=== PATIENT | female | born 1985 | race Caucasian/White ===

== ENCOUNTER 2016-08-17 12:44 | Emergency (ER) | payer SELFPAY ==
[~2016-08-17] VITALS: Ht 147.3 cm; Wt 65.5 kg
[2016-08-17 13:11] VITALS: Ht 147.3 cm; Wt 65.5 kg
[2016-08-17] MEDS ORDERED: HYDROCODONE/APAP (5/325) TAB PO STA (15:56)
[2016-08-17 16:29] LABS: ADD SCAN DIFF NO
[2016-08-17 16:33] LABS: BASOPHILS % 0.3 % (0.0-2.0); EOSINOPHILS # 0.1 10^3/ul (0.0-0.5); EOSINOPHILS % 0.7 % (0.0-7.0); HEMOGLOBIN 13.4 g/dl (12.0-16.0); LYMPHOCYTES # 3.2 10^3/ul (0.8-2.9); LYMPHOCYTES % 35.2 % (15.0-51.0); MEAN CORPUSCULAR HEMOGLOBIN 28.6 pg (29.0-33.0); MEAN CORPUSCULAR HGB CONC 33.5 g/dl (32.0-37.0); MEAN CORPUSCULAR VOLUME 85.5 fl (82.0-101.0); MEAN PLATELET VOLUME 12.5 fl (7.4-10.4); MONOCYTE # 0.4 10^3/ul (0.3-0.9); MONOCYTES % 4.6 % (0.0-11.0); NEUTROPHIL # 5.4 10^3/ul (1.6-7.5); NEUTROPHILS % 58.8 % (39.0-77.0); PLATELET COUNT 180 10^3/UL (140-415); RED BLOOD COUNT 4.68 10^6/ul (4.20-5.40); RED CELL DISTRIBUTION WIDTH 11.9 % (11.5-14.5); WHITE BLOOD COUNT 9.2 10^3/ul (4.8-10.8)
[2016-08-17 16:47] LABS: ALBUMIN 4.6 g/dl (3.3-4.9); POTASSIUM 3.7 mmol/L (3.5-5.1)
[2016-08-17 16:50] LABS: ALBUMIN/GLOBULIN RATIO 1.53; BILIRUBIN,INDIRECT 0.2 mg/dl (0-1.1); BILIRUBIN,TOTAL 0.2 mg/dl (0.2-1.3); CREATININE 0.63 mg/dl (0.44-1.00); TOTAL PROTEIN 7.6 g/dl (6.1-8.1)
[2016-08-17 16:51] LABS: CALCIUM 9.5 mg/dl (8.4-10.2)
--- NOTE | 2016-08-17 16:58 | RADRPT ---
PROCEDURE: Pelvic ultrasound. CLINICAL INDICATION: Pelvic pain TECHNIQUE: Carvajal scale, color doppler, spectral doppler ultrasound of the pelvis was performed with transabdominal and transvaginal transducers. COMPARISON: No prior studies are available for comparison. FINDINGS: Uterus: Position: Anteverted. Normal myometrial echogenicity. Normal appearance of the endometrium. Proliferative phase. Ovaries: Right ovary not identified by the casting machine service operator. A few sub centimeter follicles are noted within the left ovary. Free fluid: None. Measurements: Endometrium: 0.61 cm Uterus: 7.3 x 3.3 x 3.9 cm Left ovary: 3.4 x 2.1 x 2.8 cm IMPRESSION: Normal appearance of the uterus and left ovary. Right ovary not identified by the casting machine service operator. RPTAT: AADD .Jim Carbajal MD, Date Time Electronically viewed and signed by .Jim Carbajal MD, on 08/17/2016 16:58 .B/
--- NOTE | 2016-08-17 17:17 | ERD ---
ER Documentation Chief Complaint Date/Time DATE: 08/17/16 TIME: 17:10 Chief Complaint Pt with pelvic pain X 2 years, nausea and dizziness x 1 week, HPI This is a 30-year-old female who presents emergency for evaluation of multiple complaints. Patient states she has intermittent pelvic pain for the last 2 years. Patient also reports frequency and urgency with urination for the past week. Patient has some nausea and dizziness. Denies dysuria or hematuria. No foul smelling odor or discharge. No abnormal vaginal discharge. No fevers or chills. Patient has never had a Pap smear. Patient is currently menstruating. Has normal menstrual periods and reports a decreased level of bleeding during this period. No large clots passed. No chance of . Patient has history of ovarian cysts. No ruptured cysts. Patient reports intermittent blurriness of her vision. Has never had an eye exam. No foreign body sensation. No redness to eyes. No loss of vision. No eye or head iinjury. Patient lives in [facility] and is here for the next 3 weeks. ROS All systems reviewed and are negative except as per history of present illness. Medications Home Meds Active Scripts Ibuprofen* (Motrin*) 400 Mg Tab, 400 MG PO Q6, #15 TAB Prov:NORA VEGA NP 08/17/16 Hydrocodone/Acetaminophen (Broadview 5-325 Tablet) 1 Each Tablet, 1 TAB PO Q6H Y for PAIN, #7 TAB Prov:NORA VEGA NP 08/17/16 PMhx/Soc ovarian cyst Medical and Surgical Hx: pt denies Medical Hx, pt denies Surgical Hx Hx Alcohol Use: No Hx Substance Use: No Hx Tobacco Use: No Smoking Status: Never smoker Physical Exam Vitals Vital Signs Date Time Temp Pulse Resp B/P Pulse Ox O2 Delivery O2 Flow Rate FiO2 08/17/16 13:11 98.5 85 20 119/80 100 Physical Exam Const: [] Head: Atraumatic Eyes: Normal Conjunctiva ENT: Normal External Ears, Nose and Mouth. Neck: Full range of motion..~ No meningismus. Resp: Clear to auscultation bilaterally Cardio: Regular rate and rhythm, no murmurs Abd: Soft, non tender, non distended. Normal bowel sounds Skin: No petechiae or rashes Back: No midline or flank tenderness Ext: No cyanosis, or edema Neur: Awake and alert Psych: Normal Mood and Affect Result Diagram: 08/17/16 1628 08/17/16 1628 Results 24 hrs Laboratory Tests Test 08/17/16 16:28 08/17/16 17:29 Alanine Aminotransferase (ALT/SGPT) 21IU/L Albumin 4.6g/dl Albumin/Globulin Ratio 1.53 Alkaline Phosphatase 55IU/L Anion Gap 16 Aspartate Amino Transf (AST/SGOT) 20IU/L Basophils # 0.010^3/ul Basophils % 0.3% Blood Urea Nitrogen 11mg/dl Calcium Level 9.5mg/dl Carbon Dioxide Level 29mmol/L Chloride Level 103mmol/L Creatinine 0.63mg/dl Direct Bilirubin 0.00mg/dl Eosinophils # 0.110^3/ul Eosinophils % 0.7% Globulin 3.00g/dl Glucose Level 132mg/dl Hematocrit 40.0% Hemoglobin 13.4g/dl Indirect Bilirubin 0.2mg/dl Lymphocytes # 3.210^3/ul Lymphocytes % 35.2% Mean Corpuscular Hemoglobin 28.6pg Mean Corpuscular Hemoglobin Concent 33.5g/dl Mean Corpuscular Volume 85.5fl Mean Platelet Volume 12.5fl Monocytes # 0.410^3/ul Monocytes % 4.6% Neutrophils # 5.410^3/ul Neutrophils % 58.8% Nucleated Red Blood Cells # 0.010^3/ul Nucleated Red Blood Cells % 0.0/100WBC Platelet Count 41628^3/UL Potassium Level 3.7mmol/L Red Blood Count 4.6810^6/ul Red Cell Distribution Width 11.9% Sodium Level 144mmol/L Total Bilirubin 0.2mg/dl Total Protein 7.6g/dl White Blood Count 9.210^3/ul Bedside Urine Blood 3+ Bedside Urine Glucose (UA) Negative Bedside Urine Ketones (LAB) Negative Bedside Urine Leukocyte Esterase (L Negative Bedside Urine Nitrite (LAB) Negative Bedside Urine Protein (LAB) Negative Bedside Urine pH (LAB) 5.0 Current Medications Medications (Trade) Dose Ordered Sig/Shahid Route PRN Reason Start Time Stop Time Status Last Admin Dose Admin Acetaminophen/ Hydrocodone Bitart (Broadview (5/325)) 1 tab ONCE STAT PO 08/17/16 15:56 08/17/16 15:58 DC 08/17/16 16:14 Procedures/MDM ED COURSE: The patient was stable throughout ED course. I kept the patient and/or family informed of laboratory and diagnostic imaging results throughout the ED course. Laboratory CBC no significant anemia or infection CMP no significant electrolyte imbalance Urine dip 3+ blood otherwise negative. Imaging Patient: CRISPIN WOODY : 1985 Age: 30 Sex: F MR #: [id number] DOS: 08/17/16 1556 Ordering MD: NORA VEGA NP Location: [facility] Room/Bed: PROCEDURE: Pelvic ultrasound. CLINICAL INDICATION: Pelvic pain TECHNIQUE: Carvajal scale, color doppler, spectral doppler ultrasound of the pelvis was performed with transabdominal and transvaginal transducers. COMPARISON: No prior studies are available for comparison. FINDINGS: Uterus: Position: Anteverted. Normal myometrial echogenicity. Normal appearance of the endometrium. Proliferative phase. Ovaries: Right ovary not identified by the slab depiler operator. A few sub centimeter follicles are noted within the left ovary. Free fluid: None. Measurements: Endometrium: 0.61 cm Uterus: 7.3 x 3.3 x 3.9 cm Left ovary: 3.4 x 2.1 x 2.8 cm IMPRESSION: Normal appearance of the uterus and left ovary. Right ovary not identified by the slab depiler operator. MDM: This is a 30-year-old female who presents to the emergency department for intermittent chronic pelvic pain 2 years. Patient is also having urinary frequency and urgency over the last week. Patient reports some nausea and dizziness. Patient given Broadview for pain. No fevers or chills. Remains hemodynamically stable. Labs are unremarkable. Urine shows 3+ blood otherwise negative. Patient is currently menstruating. Patient states pain has improved after Broadview given. This is chronic pain per patient. Patient has not yet been seen by [facility]. Low suspicion for ruptured ovarian cyst, ovarian torsion, tubo-ovarian abscess or mass. Differential diagnosis includes but not limited to endometriosis, pelvic inflammatory disease, mittelschmerz, UTI, bacterial vaginosis, gonorrhea or chlamydia. Patient is appropriate for outpatient management will be given prescriptions for Broadview and ibuprofen. Instructed patient to follow-up with [facility] in the next 24-40 hours for reassessment and additional management. Return to ED for any high fever, chest pain, difficulty breathing, shortness breath, wheezing, vomiting, diarrhea, abdominal pain or any new or worsening symptoms. Patient verbalizes understanding. All questions answered at discharge. Departure Diagnosis: Primary Impression: Pelvic pain Condition: Stable NORA VEGA NP Aug 17, 2016 17:17
[2016-08-17 17:27] LABS: URINE BLOOD (Dip) POC 3+ (NEGATIVE)
[2016-08-17] MEDS ORDERED: HYDR-906 PO (17:31)
[2016-08-17] MEDS ORDERED: IBUP400T22 PO (17:31)
== END 2016-08-17 17:45 | disposition home or self-care (01) ==
LOC: FTE 12:44
DX: R10.2 Pelvic and perineal pain (principal)
CPT/HCPCS: 76830; 76856; 80053; 81003; 85025

== ENCOUNTER 2018-02-10 12:03 | Emergency (ER) | END 2018-02-10 14:01 | disposition home or self-care (01) ==

== ENCOUNTER 2019-01-19 14:07 | Emergency (ER) | payer OTHER ==
[~2019-01-19] VITALS: Ht 154.9 cm; Wt 67.1 kg
[~2019-01-19 14:07] MED LIST: BEN25 PO; EPIN0.3P4 INJ; PRED20TA PO
[2019-01-19 14:41] VITALS: Ht 154.9 cm; Wt 67.1 kg
[2019-01-19] MEDS ORDERED: LORAZEPAM 1 MG TAB PO ONE (17:00)
--- NOTE | 2019-01-19 18:32 | ERD ---
ER Documentation Chief Complaint Chief Complaint pt c/o numbness, chest pain, abpain, diarrhea x 4 days HPI 33-year-old female is here with multiple complaints. She states she has been seen at other hospitals for the same thing and has had negative blood work and EKGs. She is complaining of paresthesias in her bilateral upper extremities as well as around her mouth with chest pain palpitation. She also complaining of pelvic pain, diarrhea, bilateral ear pain, sore throat, headache, dizziness, and nausea. Symptoms began 4 days ago. ROS All systems reviewed and are negative except as per history of present illness. Medications Home Meds Active Scripts Prednisone* (Prednisone*) 20 Mg Tab, 60 MG PO DAILY for 4 Days, TAB Prov:SAVANAH DE LEON MD 02/10/18 Epinephrine (Epipen 2-Samy) 0.3 Mg/0.3 Ml Pen.injctr, 1 EA INJ ONCE PRN for ALLERGIC REACTION, #1 EA Prov:SAVANAH DE LEON MD 02/10/18 Reported Medications Diphenhydramine Hcl* (Benadryl*) 25 Mg Cap, 25 MG PO DAILY PRN for ALLERGIC REACTION, CAP 02/10/18 Allergies Allergies: Coded Allergies: No Known Allergy (Unverified , 01/19/19) PMhx/Soc History of Surgery: Yes (c section ) Anesthesia Reaction: No Hx Neurological Disorder: No Hx Respiratory Disorders: No Hx Cardiac Disorders: No Hx Psychiatric Problems: No Hx Miscellaneous Medical Probl: No Hx Alcohol Use: No Hx Substance Use: No Hx Tobacco Use: No Smoking Status: Never smoker FmHx Family History: No diabetes Physical Exam Vitals Physical Exam INITIAL VITAL SIGNS: Reviewed by me GENERAL: Awake, alert and oriented x 4, well appearing, nontoxic, speaking in full sentences. Anxious HEAD: Atraumatic NECK: Supple. No masses. Full range of motion. No meningismus. No midline tenderness. EYES: EOMI. PERRL. EAR: No tenderness over the mastoids bilaterally. No exudates in the canals. TMs nonerythematous. NOSE: Normal nose. THROAT: No tonilar erythema or edema. No exudates. Uvula midline. No kissing tonsils. RESPIRATORY: Clear to auscultation bilaterally. Symmetric chest wall rise. No w heezing or rales. No accessory muscle use. CV: Regular rate and rhythm. No murmurs, rubs, or gallops. ABDOMEN: Soft, non-distended. Nontender. Negative Richey. Negative McBurneys point tenderness. No CVA tenderness bilaterally. No guarding. No rebound. : Deffered. EXTREMITIES: No clubbing or cyanosis. No edema. Moving all extremities normally. BACK: No midline tenderness to palpation. No step-offs. SKIN: Warm and dry. No rash or petechiae. NEUROLOGIC: Normal mental status and speech. Face is symmetric. Moves all extremities equally. Motor and sensory distally intact. Normal coordination. Ambulates with a strong steady gait. Results 24 hrs Laboratory Tests Test 01/19/19 17:15 01/19/19 17:16 POC Beta HCG, Qualitative NEGATIVE Bedside Urine pH (LAB) 7.0 Bedside Urine Protein (LAB) Negative Bedside Urine Glucose (UA) Negative Bedside Urine Ketones (LAB) Negative Bedside Urine Blood Negative Bedside Urine Nitrite (LAB) Negative Bedside Urine Leukocyte Esterase (L Negative Current Medications Medications Dose Sig/Shahid Start Time Status Last (Trade) Ordered Route PRN Stop Time Admin Dose Reason Admin Lorazepam 1 mg ONCE ONCE 01/19/19 DC 01/19/19 (Ativan) PO 17:00 17:10 01/19/19 17:01 Procedures/MDM Patient is here with what is likely anxiety. She states she is had other full work-ups in the past 4 days including blood work and thyroid panel which have all been negative. Her EKG today is normal with no evidence of ST elevation or acute ischemic changes. Urine is negative for or infection. Pelvic ultrasound does show an ovarian cyst on the right side otherwise negative. He was given Ativan here with improvement. Patient counseled regarding my diagnostic impression and care plan. Prior to discharge all questions answered. Pt agrees with treatment plan and understands strict return precautions. Pt is instructed to follow up with primary care provider within 24-48 hours. Precautionary instructions provided including instructions to return to the ER if not improving or for any worsening or changing symptoms or concerns. Departure Diagnosis: Primary Impression: Paresthesia Additional Impression: Palpitations Condition: Stable MODESTO STODDARD PA-C Jan 19, 2019 18:32
[2019-01-19 19:00] VITALS: BP 118/76; PULSE 99; RESP 16
== END 2019-01-19 19:01 | disposition home or self-care (01) ==
LOC: FTE 14:07
DX: R20.2 Paresthesia of skin (principal); R00.2 Palpitations
CPT/HCPCS: 71045; 76856; 81003; 81025; 93005; Z7610